=== PATIENT | male | born 2000 | race Caucasian/White ===

== ENCOUNTER 2020-08-30 12:34 | Outpatient (CLI) | payer OTHER ==
--- NOTE | 2020-08-30 13:34 | MRI ---
EXAM: Left ankle MRI without contrast: HISTORY: Left ankle pain following a twisting injury one month ago COMPARISON: None. FINDINGS: Multiplanar, multisequence MRI examination of the ankle is performed. There is tendon sheath fluid involving the posterior tibialis tendon but no overt tendon tear. The ex tensor tendons appear unremarkable. There is some abnormal interstitial signal associated with the peroneus longus tendon just at the tip of the lateral malleolus as well as some significant thinning and possible at least partial thickness split type tear of the peroneus brevis tendon at the same location. There appears to be complete disruption of the of the fibers of the deltoid ligament. There is also c omplete disruption of the anterior talofibular ligament and calcaneofibular ligament with evidence for a high-grade sprain of the posterior talofibular ligament. The syndesmotic ligaments appear intac t. The Achilles tendon and plantar fascia are unremarkable. Sinus Tarsi and spring ligament regions are unremarkable. Multiple foci of abnormal marrow signal including a fairly large area involving the medial aspect of the talus bone from anterior to posterior as well as a subchondral fracture of the posterior aspect of the talar head. Abnormal marrow signal involving the posterior aspect of the medial malleolus as w ell as a small focus in the lateral cuboid bone. No specific focus of talar dome osteochondral injury. Tibiotalar ankle joint effusion. IMPRESSION: High-grade tearing of the fibers of the deltoid ligament as well as anterior talofibular ligament, ca lcaneofibular ligament, and mid to high-grade sprain of the posterior talofibular ligament. Evidence for some interstitial tearing involving the peroneus longus and brevis tendons at the level of the tip of the fibula. Multiple areas of bone contusion including a small subchondral fracture of the posterior talar head. Tibiotalar ankle joint effusion. Tendon sheath fluid within the posterior tibialis tendon sheath.
== END 2020-08-30 12:35 | disposition home or self-care (01) ==
LOC: SCSMRI 12:34
PROVIDERS: ATTEND Orthopaedic Surgery
DX: S93.492A Sprain of other ligament of left ankle, initial encounter (principal); S93.05XA Dislocation of left ankle joint, initial encounter; S92.122A Displaced fracture of body of left talus, initial encounter for closed fracture